=== PATIENT | female | born 1935 | race Caucasian/White ===

== ENCOUNTER → 2016-11-25 | Outpatient (CLI) | payer OTHER ==
--- NOTE | ~2016-11-25 | EE ---
Unit #: [id number] #: [id number] Patient: LENNOX GODINEZ [id number] [address] [address] [id number] O MR#: [id number] NAME: LENNOX GODINEZ : 1935 SEX: F STUDY DATE/TIME: 11/25/2016 UNIT: CEEG ROOM: STUDY DESCRIPTION: EEG Attending Physician: Christiano Ybarra II., M.D. Referring Physician: Christiano Ybarra II., M.D. Primary Care Physician: No Primary Care Physician NEURODIAGNOSTICS REPORT EXAM EEG. REASON FOR STUDY Seizures. TECH Mary Carmen. TECHNICAL INFORMATION This is a routine EEG performed using the standard International 10-20 system electrode placement. Photic stimulation was performed. Hyperventilation was not performed. REPORT Throughout the entire study, the best background rhythm seen is approximately 10 Hz. This rhythm is seen in posterior head regions symmetrically and does attenuate to eye opening and closure. Photic stimulation was performed which did not elicit any epileptiform abnormalities; however, a good photic drive response was seen. Hyperventilation was not performed. Throughout the entire study, there were no electrographic seizures recorded nor were there any independent epileptiform abnormalities seen. INTERPRETATION This is a normal awake EEG. A normal awake EEG does not rule out the possibility of a seizure disorder. Clinical correlation is advised. Dictated by... Christiano Ybarra II., M.D. GWS/mary TD: 11/30/2016 09:20 JOB #: [id number] Unit #: [id number] #: [id number] Patient: LENNOX GODINEZ NEURODIAGNOSTICS REPORT Page 1 of 1 X NEURODIAGNOSTICS REPORT
== END | disposition home or self-care (01) ==
LOC: CEEG 11:02
DX: R56.9 Unspecified convulsions (principal)
CPT/HCPCS: 95816